=== PATIENT | female | born 1990 | race Two or more races ===

== ENCOUNTER 2022-05-30 13:03 | Inpatient (IN) | payer OTHER ==
[~2022-05-30] VITALS: Ht 165.1 cm; Wt 73.5 kg
--- NOTE | 2022-05-30 13:14 | NUR ---
PTE LLEGA EN [place] DE [place] CON DOLOR DE JOSE JUAN Y EMBAZADA SE LE ABHI SIGNO VITALES Y SE PASA A EL AREA DE OBSERVACION.
== END 2022-06-03 13:41 | disposition home or self-care (01) | DRG 833 ==
LOC: ER 13:03 → OB/GYN 14:36
PROVIDERS: ADMIT Obstetrics & Gynecology; ATTEND Obstetrics & Gynecology
PROC: 4A1HXCZ Monitoring of Products of Conception, Cardiac Rate, External Approach (ICD-10-PCS; principal; 2022-05-30)
DX: O26.892 Other specified pregnancy related conditions, second trimester (principal); R10.9 Unspecified abdominal pain; Z3A.15 15 weeks gestation of pregnancy; Z20.822 Contact with and (suspected) exposure to COVID-19

== ENCOUNTER 2022-08-22 23:58 | Inpatient (IN) | payer OTHER ==
[~2022-08-22] VITALS: Ht 165.1 cm; Wt 77.1 kg
== END 2022-08-28 10:32 | disposition home or self-care (01) | DRG 832 ==
LOC: ER 23:58 → OB/GYN 08-23 10:49
PROVIDERS: ADMIT Obstetrics & Gynecology; ATTEND Obstetrics & Gynecology
PROC: 4A1HXCZ Monitoring of Products of Conception, Cardiac Rate, External Approach (ICD-10-PCS; principal; 2022-08-23)
PROC: BT43ZZZ Ultrasonography of Bilateral Kidneys (ICD-10-PCS; 2022-08-23)
PROC: BY4FZZZ Ultrasonography of Third Trimester, Single Fetus (ICD-10-PCS; 2022-08-23)
PROC: BT43ZZZ Ultrasonography of Bilateral Kidneys (ICD-10-PCS; 2022-08-25)
DX: O26.893 Other specified pregnancy related conditions, third trimester (principal); N20.1 Calculus of ureter; Z3A.28 28 weeks gestation of pregnancy; Z20.822 Contact with and (suspected) exposure to COVID-19

== ENCOUNTER 2022-11-01 09:34 | Inpatient (IN) | payer OTHER ==
[~2022-11-01] VITALS: Ht 165.1 cm; Wt 81.6 kg
[2022-11-15] MEDS ORDERED: OBSTETRIX ONE 38-1-2 PO (06:35)
== END 2022-11-17 13:17 | disposition home or self-care (01) | DRG 807 ==
LOC: LDR 11-15 06:17 → OB/GYN 11-15 14:46 → LDR 11-20 15:00
PROVIDERS: Obstetrics & Gynecology; ADMIT Obstetrics & Gynecology; ATTEND Obstetrics & Gynecology
PROC: 10E0XZZ Delivery of Products of Conception, External Approach (ICD-10-PCS; principal; 2022-11-15)
PROC: 0KQM0ZZ Repair Perineum Muscle, Open Approach (ICD-10-PCS; 2022-11-15)
PROC: 4A1HXCZ Monitoring of Products of Conception, Cardiac Rate, External Approach (ICD-10-PCS; 2022-11-15)
DX: O70.1 Second degree perineal laceration during delivery (principal); Z37.0 Single live birth; Z3A.39 39 weeks gestation of pregnancy; Z20.822 Contact with and (suspected) exposure to COVID-19

== ENCOUNTER 2022-11-12 17:02 | Outpatient (CLI) | payer OTHER | END 2022-11-12 18:06 | disposition home or self-care (01) | LOC: NST 17:02 | PROVIDERS: ATTEND Obstetrics & Gynecology Maternal & Fetal Medicine | DX: Z34.83 Encounter for supervision of other normal pregnancy, third trimester (principal) ==